=== PATIENT | female | born 1935 | race Caucasian/White ===

== ENCOUNTER 2025-01-19 16:29 | Emergency (ER) | payer MEDICARE, SELFPAY ==
--- NOTE | ~2025-01-19 | CT_ITS ---
CLINICAL HISTORY: TRAUMA CT cervical spine without contrast. COMPARISON: None provided. FINDINGS: Straightening of the normal cervical lordosis. Vertebral body heights are maintained. No evidence of acute vertebral body injury. Mucosal thickening present within the right maxillary sinus. Visualized intracranial structures are unremarkable. Emphysema at the partially visualized lung apices. C2-C3: Uncovertebral joint hypertrophy. Anterior marginal osteophytes. C3-C4: Anterior marginal osteophytes. Loss of disc space height. Uncovertebral joint hypertrophy. Facet joint arthrosis. Moderate left and mild right neural foraminal narrowing. C4-C5: Anterior marginal osteophytes. Loss of disc space height. C5-C6: Anterior marginal osteophytes. Loss of disc space height. Posterior disc osteophyte complex. Uncovertebral joint hypertrophy. Moderate bilateral neural foraminal narrowing. C6-C7: Anterior marginal osteophytes. Loss of disc space height. Uncovertebral joint hypertrophy. Mild bilateral neural foraminal narrowing. IMPRESSION: 1. No evidence of acute injury to the cervical spine. 2. Straightening of the normal cervical lordosis. This document has been electronically signed by: Hiren Valerio MD on 01/19/2025 18:02:55
--- NOTE | ~2025-01-19 | CT_ITS ---
CLINICAL HISTORY: TRAUMA CT maxillofacial without contrast. COMPARISON: None provided. FINDINGS: Bony orbits appear intact. Globes appear intact bilaterally. No postseptal or retrobulbar hematoma. Nasal bones appear intact. Nasal septum is mildly deviated to the left. Mucosal thickening present within the right maxillary sinus. Maxilla and nasal spine of the maxilla appear intact. Zygomatic processes and pterygoid plates appear intact. Temporomandibular joints are appropriately seated. Mandible appears intact. Visualized intracranial structures are unremarkable. No skull base fracture identified. IMPRESSION: 1. No evidence of acute injury to the bones of the face or orbital soft tissues. This document has been electronically signed by: Hiren Valerio MD on 01/19/2025 18:04:57
--- NOTE | ~2025-01-19 | CT_ITS ---
CLINICAL HISTORY: TRAUMA CT head without contrast. COMPARISON: None provided. FINDINGS: Scalp edema/hematoma overlying the left frontal calvarium. Mucosal thickening present within the right maxillary sinus. The mastoid air cells are clear. No calvarial fracture. Atherosclerotic intracranial vasculature. No evidence for mass or mass effect. No intracranial hemorrhage or abnormal extra-axial fluid collection. The ventricles are proportional with the degree of moderate global cerebral volume loss without evidence of hydrocephalus. Basilar cisterns are patent. There are periventricular areas of low attenuation compatible with mild white matter small vessel disease. Posterior fossa appears unremarkable. IMPRESSION: 1. No acute intracranial findings. This document has been electronically signed by: Hiren Valerio MD on 01/19/2025 18:05:39
[2025-01-19 16:41] VITALS: BP 207/92; PULSE 76; RESP 18; TEMP 36.6; O2SAT 100; BMI 18.3
--- NOTE | 2025-01-19 16:46 | ED.GENADULT ---
HPI - General Adult General Chief complaint: Fall Stated complaint: fell about a week ago/face injury Time Seen by Provider: 01/19/25 16:55 Source: patient Mode of arrival: ambulatory Limitations: no limitations History of Present Illness ED Provider: HPI narrative: 89-year-old woman not on blood thinners, fell last week, has hematoma left side of the forehead, bruising over the left part of the face and raccoon's eyes bilaterally, she states did not have any symptoms of headaches, decreased p.o. intake, has been working outside, I think family was beginning to be concern of why she has hematoma over the forehead. Related Data Allergies Allergy/AdvReac Type Severity Reaction Status Date / Time No Known Allergies Allergy Verified 01/19/25 16:45 Review of Systems Constitutional: Constitutional: Reports as per [facility] Social History Social History Advance Directives: No Advance Directives Information Provided: Yes Physical Exam ED Exam Exam: General: ?Appears of stated age ? ?bilateral raccoon's eyes, old bruising over her left part of the face No dental injury, no nasal deformity ? Neck: Supple, no LAD ? ?CV: S1-S2 ? ?Resp: ?No wheezing rales rhonchi no stridor moving air well ? Abd: ?Bowel sounds are present, no tenderness no rebound no rigidity ? ?MSK: FROM, strength 5/5 all extremities ? Skin: Warm, dry, intact, ? ?Neuro: ?Alert and oriented to self, location, moving upper and lower extremities symmetrically, no obvious facial asymmetry noted, cranial nerves 2-12 intact Vital Signs: Vital Signs - 24 hr 01/19/25 16:41 01/19/25 18:20 Temperature 97.8 F 98.0 F Pulse Rate 76 61 Respiratory Rate 18 12 Blood Pressure 207/92 H 162/70 H Pulse Oximetry 100 99 Oxygen Delivery Method Room Air Room Air BMI result Body Mass Index 18.3 Course Course Course Narrative: This is a Rapid Medical Examination (RME) performed by Jonathan Elizalde PA-C in triage. Full HPI, ROS, assessment and treatment plan per primary provider in the Main ED. Hx: 89 yo F here w/ daughter for eval s/p mechanical fall 1 week ago. Fall was unwitnessed. She reports missing the last step of her stairs, possible head strike into the wall however she can not elaborate. She is unable to tell me the year, daughter states that this is not her baseline. no thinners PE/vitals: raccoon eyes, healing bruising noted to left side of face with hematoma to left forehead Plan: labs imaging Medical Decision Making Medical Decision Making [facility] Narrative: 5:11 PM 01/19/2025 (Dr. Simeon Mcginnis): Patient did not come to the emergency department right away and fell 6 days ago, noted to be hypertensive , do not report history of elevated blood pressure, we will make sure no underlying end-organ damage obtain ECG though she is completely asymptomatic Differential Diagnosis Differential Diagnoses: The differential diagnosis associated with the presentation includes (Head injury, neck injury, facial injury, anemia, chronic hypotension) Admission/Observation Consideration of admission/observation: Escalation of care including admission/observation considered Lab Data [facility] Lab Attestation statement: I reviewed the patient's lab results. 01/19/25 17:03 01/19/25 17:03 Labs: Lab Results 01/19/25 Range/Units 17:03 WBC 4.9 (4.8-10.8) X10*3/uL RBC 3.61 L (4.20-5.50) X10*6/uL Hgb 11.5 L (12.0-16.0) g/dl Hct 34.8 L (37.0-47.0) % MCV 96.4 (80.0-98.0) fL MCH 31.9 (27.0-33.0) pg MCHC 33.0 (31.0-35.0) g/dl RDW 13.0 (11.0-16.0) % Plt Count 211 (160-400) X10*3/uL MPV 9.5 (9.4-12.3) fL Immature Gran % (Auto) 0.2 (0.0-0.4) % Neut % (Auto) 58.9 (45-73) % Lymph % (Auto) 28.6 (20-40) % [place] % (Auto) 10.1 (2-11) % Eos % (Auto) 1.6 (0-4) % Baso % (Auto) 0.6 (0-2) % Lymph # (Auto) 1.4 (1.2-4.9) X10*3/uL [place] # (Auto) 0.5 (0.1-1.2) X10*3/uL Eos # (Auto) 0.1 (0.0-0.4) X10*3/uL Baso # (Auto) 0.0 (0.0-0.2) X10*3/uL Abs Immat Gran (auto) 0.01 (0.00-0.03) X10*3/uL Absolute Neuts (auto) 2.9 (2.0-8.3) x10*3/uL Absolute Nucleated RBC 0.000 (0.0-0.012) X10*3/uL Nucleated RBC % (auto) 0.0 (0.0-0.2) /100WBC Sodium 146 H (135-145) mmol/L Potassium 3.3 (3.3-5.1) mmol/L Chloride 109 H (96-108) mmol/L Carbon Dioxide 28 (22-29) mmol/L Anion Gap 12 (12-20) BUN 15 (9-16) mg/dL Creatinine 0.88 (0.5-1.4) mg/dL Estim Creat Clear Calc 33.7 Estimated GFR > 60 Random Glucose 94 (60-115) mg/dL Calcium 8.7 (8.4-10.2) mg/dL Magnesium 2.3 (1.6-2.6) mg/dL Total Bilirubin 0.3 (0.0-1.0) mg/dL AST 30 (5-31) U/L ALT 21 (0-31) U/L Alkaline Phosphatase 98 (39-117) U/L Total Protein 6.2 L (6.5-8.0) g/dL Albumin 4.2 (3.5-5.0) g/dL Independent Interpretation I performed an independent interpretation of an: EKG (61 beats per minute otherwise normal ECG without dysrhythmia, AV veronica blocks or ST-T changes to suspect underlying ACS, my independent interpretation) Radiology Impression Discussion of test interpretation with radiology: I have reviewed the radiologist's reading. (No acute injuries) Independent Historian Clinical information obtained from an independent historian. History obtained from or confirmed by: Other (Daughter) Prescription Management I considered prescription management with: Pain Medication Discharge Plan Discharge Clinical Impression: Contusion of face Patient Disposition: Home, Self-Care Additional Instructions: CAT scans of the head, face, cervical spine all unremarkable, blood work reassuring, noted to have elevated blood pressure initially then it is somewhat came down other continue monitoring it and follow up with the PCP nothing to do at this time, this contusion of the face and bruising we will take some more weeks to resolve, there is really nothing to do at this time, as we have discussed, if you have any falls and head injury I would like you to come into the ER right away to make sure you do not miss at potential head bleed Print Language: Cambodian
[2025-01-19 17:12] LABS: MANUAL DIFF FLAG NO
[2025-01-19 17:14] LABS: Hematocrit 34.8 % (37.0-47.0); Hemoglobin 11.5 g/dl (12.0-16.0); Imm Gran Abs Auto 0.01 X10*3/uL (0.00-0.03); Imm Gran Pct Auto 0.2 % (0.0-0.4); Lymphocytes Absolute Auto 1.4 X10*3/uL (1.2-4.9); Mean Corpuscular HGB Conc 33.0 g/dl (31.0-35.0); Mean Corpuscular Hemoglobin 31.9 pg (27.0-33.0); Mean Corpuscular Volume 96.4 fL (80.0-98.0); NRBC Abs Auto 0.000 X10*3/uL (0.0-0.012); NRBC Pct Auto 0.0 /100WBC (0.0-0.2); Platelet Count 211 X10*3/uL (160-400); Red Blood Count 3.61 X10*6/uL (4.20-5.50); White Blood Count 4.9 X10*3/uL (4.8-10.8)
--- NOTE | 2025-01-19 17:15 | ECG_ITS ---
Test Reason : [place] Blood Pressure : */* mmHG Vent. Rate : 61 BPM Atrial Rate : 61 BPM P-R Int : 164 ms QRS Dur : 72 ms QT Int : 438 ms P-R-T Axes : 56 -3 48 degrees QTcB Int : 440 ms Sinus rhythm with Premature atrial complexes Nonspecific ST and T wave abnormality Abnormal ECG No previous ECGs available Referred By: Simeon Mcginnis Electronically Signed By: EDUARDO BARBER MD
[2025-01-19 17:34] LABS: Alanine Aminotransferase 21 U/L (0-31); Albumin Level 4.2 g/dL (3.5-5.0); Anion Gap 12 (12-20); Aspartate Amino Transferase 30 U/L (5-31); Blood Urea Nitrogen 15 mg/dL (9-16); Calcium 8.7 mg/dL (8.4-10.2); Carbon Dioxide 28 mmol/L (22-29); Chloride 109 mmol/L (96-108); Creatinine Clr Calc Pharmacy 33.7; Estimated Glomerular Filt Rate > 60; Magnesium 2.3 mg/dL (1.6-2.6); Potassium 3.3 mmol/L (3.3-5.1); Sodium 146 mmol/L (135-145); Total Protein 6.2 g/dL (6.5-8.0)
[2025-01-19 18:10] LABS: Alkaline Phosphatase 98 U/L (39-117)
[2025-01-19 18:20] VITALS: BP 162/70; PULSE 61; RESP 12; TEMP 36.7; O2SAT 99
[2025-01-19 18:41] VITALS: BP 162/70; PULSE 61; RESP 12; TEMP 36.7; O2SAT 99
== END 2025-01-19 18:42 | disposition home or self-care (01) ==
PROVIDERS: Physician Assistant Medical; Emergency Provider Emergency Medicine; PCP Internal Medicine
DX: S00.83XA Contusion of other part of head, initial encounter (principal); I10 Essential (primary) hypertension; W17.89XA Other fall from one level to another, initial encounter; Y93.89 Activity, other specified; Y92.098 Other place in other non-institutional residence as the place of occurrence of the external cause; Y99.8 Other external cause status; Z79.899 Other long term (current) drug therapy
CPT/HCPCS: 36415; 70450; 70486; 72125; 80053; 83735; 85025; 93005; 99284

== ENCOUNTER → 2025-01-19 16:46 | Outpatient (BNV) | payer MEDICARE, SELFPAY | PROVIDERS: Emergency Provider Emergency Medicine; PCP Internal Medicine; Visit Provider Radiology Diagnostic Radiology | DX: Z04.3 Encounter for examination and observation following other accident (principal); S09.93XA Unspecified injury of face, initial encounter; W19.XXXA Unspecified fall, initial encounter | CPT/HCPCS: 70450; 70486; 72125 ==

== ENCOUNTER → 2025-01-19 17:15 | Outpatient (BNV) | payer MEDICARE, SELFPAY | PROVIDERS: Emergency Provider Emergency Medicine; PCP Internal Medicine; Visit Provider Internal Medicine Cardiovascular Disease | DX: I49.1 Atrial premature depolarization (principal) | CPT/HCPCS: 93010 ==